=== PATIENT | female | born 1995 | race Caucasian/White ===

== ENCOUNTER 2022-12-04 08:00 | Outpatient (CLI) | payer OTHER ==
[2022-12-04 21:11] LABS: INFECTIOUS MONONUCLEOSIS NEGATIVE (Negative)
== END 2022-12-04 23:59 | disposition home or self-care (01) ==
LOC: LAB.N 08:00
PROVIDERS: ATTEND Nurse Practitioner
DX: M54.2 Cervicalgia (principal)
CPT/HCPCS: 36415; 86308; 86735